=== PATIENT | female | born 1940 | race Two or more races ===

== ENCOUNTER 2018-03-27 19:51 | Emergency (ER) | payer OTHER ==
[~2018-03-27] VITALS: Ht 170.2 cm; Wt 54.4 kg
[~2018-03-27 19:51] MED LIST: FENOFIBRATE160 MG; NORVASC5 MG; SIMVASTATIN20 MG; TOPROL XL25 MG
== END 2018-03-27 21:46 | disposition home or self-care (01) ==
LOC: ER 19:51
DX: R60.0 Localized edema (principal); M79.644 Pain in right finger(s); T63.441A Toxic effect of venom of bees, accidental (unintentional), initial encounter; Y92.89 Other specified places as the place of occurrence of the external cause

== ENCOUNTER 2018-05-26 12:44 | Outpatient (CLI) | payer OTHER | END 2018-05-26 12:53 | disposition home or self-care (01) | LOC: RAD 12:44 | DX: M12.812 Other specific arthropathies, not elsewhere classified, left shoulder (principal); M12.811 Other specific arthropathies, not elsewhere classified, right shoulder; M19.012 Primary osteoarthritis, left shoulder; M19.011 Primary osteoarthritis, right shoulder; M17.0 Bilateral primary osteoarthritis of knee ==

== ENCOUNTER 2018-06-23 10:40 | Outpatient (CLI) | payer OTHER | END 2018-06-23 11:00 | disposition home or self-care (01) | LOC: NUCLEAR 10:40 | DX: I87.2 Venous insufficiency (chronic) (peripheral) (principal) ==

== ENCOUNTER 2018-08-03 12:10 | Outpatient (CLI) | payer OTHER | END 2018-08-03 12:22 | disposition home or self-care (01) | LOC: TOM 12:10 | DX: C34.90 Malignant neoplasm of unspecified part of unspecified bronchus or lung (principal); I50.32 Chronic diastolic (congestive) heart failure; I10 Essential (primary) hypertension; E78.2 Mixed hyperlipidemia ==

== ENCOUNTER 2019-03-12 09:51 | Outpatient (CLI) | payer OTHER | END 2019-03-12 18:00 | disposition home or self-care (01) | LOC: TOM 09:51 | DX: R41.2 Retrograde amnesia (principal) ==

== ENCOUNTER 2022-01-29 10:26 | Outpatient (CLI) | payer OTHER | END 2022-01-29 10:30 | disposition home or self-care (01) | LOC: RAD 10:26 | PROVIDERS: ATTEND Internal Medicine Pulmonary Disease | DX: J44.1 Chronic obstructive pulmonary disease with (acute) exacerbation (principal); J30.1 Allergic rhinitis due to pollen; R06.02 Shortness of breath ==

== ENCOUNTER 2022-09-06 11:03 | Outpatient (CLI) | payer OTHER | END 2022-09-06 11:13 | disposition home or self-care (01) | LOC: MRI 11:03 | PROVIDERS: ATTEND Psychiatry & Neurology Clinical Neurophysiology | DX: G11.2 Late-onset cerebellar ataxia (principal); E51.2 Wernicke's encephalopathy | CPT/HCPCS: 70551 ==

== ENCOUNTER 2023-01-09 13:45 | Outpatient (CLI) | payer OTHER | END 2023-01-09 14:02 | disposition home or self-care (01) | LOC: TOM 13:45 | PROVIDERS: ATTEND Internal Medicine Pulmonary Disease | DX: M25.561 Pain in right knee (principal); M25.662 Stiffness of left knee, not elsewhere classified ==

== ENCOUNTER 2023-01-09 15:17 | Outpatient (CLI) | payer OTHER | END 2023-01-09 15:22 | disposition home or self-care (01) | LOC: LAB 15:17 | PROVIDERS: ATTEND Radiology Diagnostic Radiology | DX: R06.02 Shortness of breath (principal) ==

== ENCOUNTER 2023-02-06 11:41 | Outpatient (CLI) | payer OTHER | END 2023-02-06 11:59 | disposition home or self-care (01) | LOC: MRI 11:41 | PROVIDERS: ATTEND Internal Medicine Rheumatology | DX: M23.303 Other meniscus derangements, unspecified medial meniscus, right knee (principal); M23.304 Other meniscus derangements, unspecified medial meniscus, left knee; M23.300 Other meniscus derangements, unspecified lateral meniscus, right knee; M23.301 Other meniscus derangements, unspecified lateral meniscus, left knee | CPT/HCPCS: 73221; 73721 ==

== ENCOUNTER 2023-09-10 14:08 | Outpatient (CLI) | payer OTHER | END 2023-09-10 14:17 | disposition home or self-care (01) | LOC: RAD 14:08 | DX: M46.92 Unspecified inflammatory spondylopathy, cervical region (principal); M19.071 Primary osteoarthritis, right ankle and foot; M17.0 Bilateral primary osteoarthritis of knee ==

== ENCOUNTER 2024-05-14 15:04 | Outpatient (CLI) | payer OTHER | END 2024-05-14 15:08 | disposition home or self-care (01) | LOC: RAD 15:04 | DX: M17.9 Osteoarthritis of knee, unspecified (principal) ==

== ENCOUNTER 2024-10-15 19:00 | Inpatient (IN) | payer OTHER ==
[~2024-10-15] VITALS: Ht 152.4 cm; Wt 44.5 kg
[2024-10-16] MEDS ORDERED: 0.9 % SODIUM CHLORIDE 1,000 ML IV STA (01:13)
[2024-10-16 03:22] LABS: INR 1.07; PARTIAL THROMBOPLASTIN TIME 28.1 SECONDS (22.0-34.0); PROTHROMBIN TIME 11.6 SECONDS (9.0-11.5)
[2024-10-16 03:23] LABS: HEMATOCRIT 37.1 % (36.0-45.00); HEMOGLOBIN 12.5 g/dL (12.0-15.00); MEAN CELL VOLUME 95.2 fL (80.00-100.00); MEAN CORPUSCULAR HEMOGLOBIN 32.2 pg (27.00-32.0); MEAN CORPUSCULAR HGB CONC 33.8 g/dl (32.0-36.0); PLATELET COUNT 168 K/uL (150-450); RED CELL DISTRIBUTION WIDTH 12.9 % (11.5-14.5)
[2024-10-16 03:28] LABS: ALBUMIN 3.6 gm/dL (3.4-5.0); BILIRUBIN TOTAL 0.3 mg/dL (0.3-1.2); CALCIUM 8.9 mg/dL (8.5-10.1); CREATININE SERUM 1.1 mg/dL (0.55-1.02); GFR 47.21; GLOBULINA 3.2 G/DL (2.4-3.5); POTASSIUM 3.56 mEq/L (3.5-5.1); TOTAL PROTEIN 6.8 gm/dL (6.4-8.2)
[2024-10-16] MEDS ORDERED: HALOPERIDOL LACTATE 5 MG/ML AMPUL IM PRN (09:45)
[2024-10-16 15:09] VITALS: BP 186/104; O2SAT 97
[2024-10-16 19:13] VITALS: BP 199/84
[2024-10-16 22:20] VITALS: BP 140/90
[2024-10-17 02:42] VITALS: BP 173/89
[2024-10-17] MEDS ORDERED: CLOPIDOGREL BISULFATE 75 MG TABLET PO SCH (09:00)
[2024-10-17] MEDS ORDERED: AMLODIPINE BESYLATE 5 MG TABLET PO SCH (09:00)
[2024-10-17] MEDS ORDERED: AMLODIPINE BESYLATE 10 MG TABLET PO SCH (09:00)
[2024-10-17] MEDS ORDERED: ENOXAPARIN SODIUM 40 MG/0.4 ML SYRINGE SUBCUTANEO SCH (09:00)
[2024-10-17] MEDS ORDERED: METOPROLOL SUCCINATE 25 MG TAB.SR.24H PO SCH (09:00)
[2024-10-17] MEDS ORDERED: ATORVASTATIN CALCIUM 40 MG TABLET PO SCH (09:00)
[2024-10-17] MEDS ORDERED: LOSARTAN POTASSIUM 50 MG TABLET PO SCH (09:00)
[2024-10-17 09:07] VITALS: BP 172/80; O2SAT 92
[2024-10-17 17:42] VITALS: BP 136/67
[2024-10-18 02:33] VITALS: BP 159/87; O2SAT 95
[2024-10-18 08:23] VITALS: BP 176/80
[2024-10-18 13:01] LABS: HEMATOCRIT 34.8 % (36.0-45.00); HEMOGLOBIN 11.4 g/dL (12.0-15.00); MEAN CELL VOLUME 94.7 fL (80.00-100.00); MEAN CORPUSCULAR HEMOGLOBIN 31.1 pg (27.00-32.0); MEAN CORPUSCULAR HGB CONC 32.8 g/dl (32.0-36.0); RED BLOOD COUNT 3.67 M/uL (4.00-6.00); RED CELL DISTRIBUTION WIDTH 12.7 % (11.5-14.5)
[2024-10-18 13:02] LABS: PLATELET COUNT 116 K/uL (150-450)
[2024-10-18 14:09] LABS: ALBUMIN 3.3 gm/dL (3.4-5.0); BILIRUBIN TOTAL 0.38 mg/dL (0.3-1.2); CALCIUM 8.4 mg/dL (8.5-10.1); CREATININE SERUM 1.06 mg/dL (0.55-1.02); GFR 49.27; GLOBULINA 2.9 G/DL (2.4-3.5); TOTAL PROTEIN 6.2 gm/dL (6.4-8.2)
[2024-10-18 14:24] LABS: POTASSIUM 2.96 mEq/L (3.5-5.1)
[2024-10-18] MEDS ORDERED: POTASSIUM CHLORIDE IN WATER 100 ML IV NR (14:30)
[2024-10-18 16:50] VITALS: BP 161/81; O2SAT 91
[2024-10-18 20:00] VITALS: BP 156/75; O2SAT 91
[2024-10-19 02:22] VITALS: BP 148/76; O2SAT 94
[2024-10-19 09:44] VITALS: BP 150/78; O2SAT 93
[2024-10-19] MEDS ORDERED: POTASSIUM CHLORIDE 10 MEQ CAPSULE PO NR (10:00)
[2024-10-19 15:36] LABS: HEMATOCRIT 34.4 % (36.0-45.00); HEMOGLOBIN 11.7 g/dL (12.0-15.00); MEAN CELL VOLUME 93.6 fL (80.00-100.00); MEAN CORPUSCULAR HEMOGLOBIN 31.9 pg (27.00-32.0); MEAN CORPUSCULAR HGB CONC 34.1 g/dl (32.0-36.0); RED BLOOD COUNT 3.68 M/uL (4.00-6.00)
[2024-10-19 16:07] LABS: ALBUMIN 2.9 gm/dL (3.4-5.0); BILIRUBIN TOTAL 0.35 mg/dL (0.3-1.2); CALCIUM 8.4 mg/dL (8.5-10.1); CREATININE SERUM 0.76 mg/dL (0.55-1.02); GFR 72.33; GLOBULINA 2.9 G/DL (2.4-3.5); POTASSIUM 4.34 mEq/L (3.5-5.1); TOTAL PROTEIN 5.8 gm/dL (6.4-8.2)
[2024-10-19 16:09] LABS: PLATELET COUNT 80 K/uL (150-450)
[2024-10-19 17:14] VITALS: BP 124/78; O2SAT 90
[2024-10-20 03:16] VITALS: BP 141/73; O2SAT 97
[2024-10-20 08:53] VITALS: BP 152/76; O2SAT 95
== END 2024-10-20 14:52 | disposition home or self-care (01) | DRG 69 ==
LOC: ER 19:00 → MEDI 10-16 11:21
PROVIDERS: Internal Medicine; ADMIT Internal Medicine; ATTEND Internal Medicine
PROC: BW28ZZZ Computerized Tomography (CT Scan) of Head (ICD-10-PCS; principal; 2024-10-15)
PROC: B030YZZ Magnetic Resonance Imaging (MRI) of Brain using Other Contrast (ICD-10-PCS; 2024-10-16)
PROC: B24BYZZ Ultrasonography of Heart with Aorta using Other Contrast (ICD-10-PCS; 2024-10-16)
PROC: B345ZZZ Ultrasonography of Bilateral Common Carotid Arteries (ICD-10-PCS; 2024-10-16)
DX: G45.9 Transient cerebral ischemic attack, unspecified (principal)
CPT/HCPCS: 70544

== ENCOUNTER 2025-02-02 14:42 | Outpatient (CLI) | payer OTHER | END 2025-02-02 14:45 | disposition home or self-care (01) | LOC: RAD 14:42 | PROVIDERS: ATTEND Physical Medicine & Rehabilitation | DX: M54.6 Pain in thoracic spine (principal); M54.51 Vertebrogenic low back pain; M53.3 Sacrococcygeal disorders, not elsewhere classified ==

== ENCOUNTER 2025-02-21 10:27 | Outpatient (CLI) | payer OTHER | END 2025-02-21 10:28 | disposition home or self-care (01) | LOC: NUCLEAR 10:27 | PROVIDERS: ATTEND Internal Medicine | DX: M81.0 Age-related osteoporosis without current pathological fracture (principal) ==

== ENCOUNTER 2025-04-08 12:22 | Outpatient (CLI) | payer OTHER ==
[2025-04-08 14:46] LABS: ALBUMIN 3.8 gm/dL (3.4-5.0); BILIRUBIN TOTAL 0.66 mg/dL (0.3-1.2); CALCIUM 9.2 mg/dL (8.5-10.1); CREATININE SERUM 1.02 mg/dL (0.55-1.02); GFR 51.38; GLOBULINA 3.2 G/DL (2.4-3.5); MAGNESIUM 1.6 mg/dL (1.8-2.4); PHOSPHOROUS 4.1 mg/dL (2.5-4.9); POTASSIUM 4.67 mEq/L (3.5-5.1)
== END 2025-04-08 12:28 | disposition home or self-care (01) ==
LOC: LAB 12:22
PROVIDERS: ATTEND Orthopaedic Surgery
DX: E55.9 Vitamin D deficiency, unspecified (principal); M85.9 Disorder of bone density and structure, unspecified; E56.1 Deficiency of vitamin K; E21.3 Hyperparathyroidism, unspecified; E88.89 Other specified metabolic disorders; M81.8 Other osteoporosis without current pathological fracture

== ENCOUNTER 2025-09-14 13:16 | Outpatient (CLI) | payer OTHER | END 2025-09-14 13:19 | disposition home or self-care (01) | LOC: MRI 13:16 | PROVIDERS: ATTEND Internal Medicine Endocrinology, Diabetes & Metabolism | DX: M54.50 Low back pain, unspecified (principal); M48.061 Spinal stenosis, lumbar region without neurogenic claudication; M47.816 Spondylosis without myelopathy or radiculopathy, lumbar region; M54.6 Pain in thoracic spine; M54.16 Radiculopathy, lumbar region; E78.2 Mixed hyperlipidemia; I10 Essential (primary) hypertension; R60.0 Localized edema | CPT/HCPCS: 72146; 72148 ==